=== PATIENT | male | born 1980 | race Caucasian/White ===

== ENCOUNTER 2022-02-16 17:24 | Emergency (ER) | payer OTHER ==
[2022-02-16] MEDS ORDERED: Sodium Chloride 0.9% 1,000 ML IV SCH (19:45)
[2022-02-16] MEDS ORDERED: Apixaban 5 MG Tab PO STA (22:45)
== END 2022-02-16 23:28 | disposition home or self-care (01) ==
LOC: JD.ED 17:24
DX: I81 Portal vein thrombosis (principal); Z79.01 Long term (current) use of anticoagulants; Z72.0 Tobacco use
CPT/HCPCS: 36415; 74178; 83605; 85610; 86140; 99284; A9270; J7030

== ENCOUNTER 2022-10-11 19:17 | Emergency (ER) | payer OTHER ==
[2022-10-11] MEDS ORDERED: cefTRIAXone 1 GM, Lidocaine 1% 2.1 ML IM ONE ×2 (20:30)
== END 2022-10-11 21:27 | disposition home or self-care (01) ==
LOC: JD.ED 19:17
DX: L03.113 Cellulitis of right upper limb (principal)
CPT/HCPCS: 96372; 99283; J0696